=== PATIENT | female | born 1950 | race Two or more races ===

== ENCOUNTER → 2016-09-14 | Outpatient (CLI) | payer MEDICARE, OTHER ==
[~2016-09-14] VITALS: Ht 154.9 cm; Wt 53.5 kg
[~2016-09-14] MED LIST: MULTIVITAMINS1 EAC2 ORAL; NO MEDICATION; biotin PO
[2016-09-14 13:48] VITALS: BP 110/76
--- NOTE | 2016-09-14 13:51 | GI Initial Consult Note ---
History of Present Illness General Date patient seen: Sep 14, 2016 Time patient seen: 13:46 Referring physician: LYLA Reason for Consultation: INITIAL COLONOSCOPY Present Illness HPI 66M no prior history of endoscopic procedures referred to [facility] by Dr. Campbell for initial colonoscopy screening. Pt presents today with c/o of occasional GERD. Otherwise, no other GI complaints. Med list reviewed/reconciled: Yes Allergies: Coded Allergies: No Known Allergies (Unverified , 09/14/16) Patient History History Provided By: Patient PMH Narrative Denies any medical history. Past Surgical History: none Family History Narrative Father - Colon CA @ 80's year old. Cousin Luis [place] @ 80's year old. Social History: Reports: alcohol use - social, rare, other - tea Review of Systems All Other Systems: negative except mentioned in HPI Physical Exam T 98.1 BP 110/76 P 70 99 RA HT 5'1 WT 118 Sp02 EP Interpretation: reviewed General Appearance: well appearing, no apparent distress, alert Head: normocephalic EENT: PERRL/EOMI, normal ENT inspection Neck: full range of motion, supple Respiratory: normal inspection, normal breath sounds, no respiratory distress Cardiovascular: normal rate Gastrointestinal: normal inspection, non tender, soft Rectal: deferred Genitourinary: normal inspection, no CVA tenderness Musculoskeletal: back normal Neurologic: normal inspection, alert, oriented x3, responsive Psychiatric: normal inspection, judgement/insight normal, memory normal Skin: normal inspection, normal color, no rash Lymphatic: normal inspection, no adenopathy GI: Plan Problems: (1) GERD (gastroesophageal reflux disease) (2) Colonoscopy planned Plan EGD/colonoscopy scheduled for 09/21/16 - [facility] & Trilyte prep instructions given and acknowledged. Seen with Dr. Bose. Thank you for referring this kind patient. Meg Araujo N.P. Sep 14, 2016 13:51
== END | disposition home or self-care (01) ==
LOC: PAN 13:10 → EDSEX 13:10
DX: K21.9 Gastro-esophageal reflux disease without esophagitis (principal); Z80.8 Family history of malignant neoplasm of other organs or systems
CPT/HCPCS: 99201

== ENCOUNTER → 2016-09-21 | Day surgery (SDC) | payer MEDICARE, OTHER ==
[2016-09-21] VITALS (8 sets, daily range): BP systolic 104–128; BP diastolic 63–79
[~2016-09-21] VITALS: Ht 154.9 cm; Wt 53.5 kg
[~2016-09-21] MED LIST changes: +LR 1000ml ONE; +Lidocaine 1% MPF 10mg/ml 5ml ONE; +Propofol 10mg/ml 20ml IV ONE
--- NOTE | 2016-09-21 10:50 | Pre-Procedure Note/Attestation ---
Pre-Procedure Note/Attestation Complete Prior to Procedure Planned Procedure: not applicable Procedure Narrative: egd/colon Indications for Procedure Pre-Operative Diagnosis: gerd, screening colon Attestation I attest that I discussed the nature of the procedure; its benefits; risks and complications; and alternatives (and the risks and benefits of such alternatives ), prior to the procedure, with the patient (or the patient's legal group sales representative). I attest that, if there was a reasonable possibility of needing a blood transfusion, the patient (or the patient's legal group sales representative) was given the [facility] standardized written summary, pursuant to the [place] Blood Safety Act ([place] Health and Safety Code # 1645, as amended). I attest that I re-evaluated the patient just prior to the surgery and that there has been no change in the patient's H&P, except as documented below: RICHIE ECHOLS Sep 21, 2016 10:50
--- NOTE | 2016-09-21 10:51 | Short Stay Surgery H&P ---
History of Present Illness History of Present Illness Chief Complaint see recent consult note HPI Jamila Ladd is a 66 year old female who was admitted on for Gerd,Colon Screening Patient History Allergies: Coded Allergies: No Known Allergies (Unverified , 09/14/16) PAST MEDICAL HISTORY: Past Surgeries: Social History: Medication History Scheduled Multivitamins* (Multivitamins*), 1 TAB ORAL DAILY, (Reported) [biotin], 1 TAB PO DAILY, (Reported) Miscellaneous Medications [No Medication ], (Reported) Physical Exam Vital Signs Last Vital Signs Date Time Temp Pulse Resp B/P Pulse Ox O2 Delivery O2 Flow Rate FiO2 09/21/16 10:29 97.1 68 18 123/79 97 Room Air Plan Attestation Are the patient's medical conditions optimized for surgery? RICHIE ECHOLS Sep 21, 2016 10:51
--- NOTE | 2016-09-21 11:17 | Endoscopy Procedure Note ---
Endoscopy Procedure Note Indication for Procedure: anemia, screening colon eval Procedures Performed: EGD, colonoscopy Operative Findings/Diagnosis: gastritis, hemorrhoids Specimen: yes Pt Tolerated Procedure Well: Yes Estimated Blood Loss: none Anesthesiologist: reggie Anesthesia: MAC Implant(s) used?: No 50 yrs or older w/o bx or poly: Yes 10yrs. F/U not recommended: Yes If not recommended, why?: Above average risk 10 yrs. F/U needed: Yes 18 years or older w/prev. colo: No RICHIE ECHOLS Sep 21, 2016 11:17
--- NOTE | 2016-09-21 11:22 | Immediate Post-Op Evaluation ---
Immediate Post-Op Evalulation Immediate Post-Op Evalulation Procedure: egd/colonoscopy Date of Evaluation: Sep 21, 2016 Time of Evaluation: 11:22 IV Fluids: 500 Blood Pressure Systolic: 107 Blood Pressure Diastolic: 71 Pulse Rate: 70 Respiratory Rate: 14 O2 Sat by Pulse Oximetry: 100 Temperature (Fahrenheit): 97.5 Nausea: No Vomiting: No Complications none Patient Status: awake, patent Hydration Status: adequate Drug: none JANN FAIR CRNA Sep 21, 2016 11:22
--- NOTE | 2016-09-21 11:24 | Anethesia Preoperative Eval ---
Anesthesia Pre-op PMH/ROS General Date of Evaluation: Sep 21, 2016 Time of Evaluation: 10:45 Anesthesiologist: aiden ASA Score: ASA 2 Mallampati Score Class I : Soft palate, uvula, fauces, pillars visible Class II: Soft palate, uvula, fauces visible Class III: Soft palate, base of uvula visible Class IV: Only hard plate visible Mallampati Classification: Class II Surgeon: Lidya Diagnosis: GERD Surgical Procedure: EGD/COlonoscopy Anesthesia History: none Family History: no anesthesia problems Allergies: Coded Allergies: No Known Allergies (Unverified , 09/14/16) Medications: see eMAR Past Medical History Cardiovascular: Denies: CAD, HTN, MA, arrhythmia, other, valve dz Pulmonary: Denies: COPD, JONATHAN, asthma, other Gastrointestinal/Genitourinary: Reports: GERD Neurologic/Psychiatric: Denies: CVA, TIA, dementia, depression/anxiety, other Endocrine: Denies: DM, hypothyroidism, other, steroids HEENT: Denies: YUHAAVIATAM (L), YUHAAVIATAM (R), cataract (L), cataract (R), glaucoma, other Hematology/Immune: Denies: DVT, anemia, bleeding disorder, other Musculoskeletal/Integumentary: Denies: DDD, DJD, OA, RA, edema, other PSxH Narrative: none Anesthesia Pre-op Phys. Exam Physician Exam Last Vital Signs Date Time Temp Pulse Resp B/P Pulse Ox O2 Delivery O2 Flow Rate FiO2 09/21/16 10:29 97.1 68 18 123/79 97 Room Air Constitutional: NAD Neurologic: CN 2-12 intact Cardiovascular: RRR Respiratory: CTA Gastrointestinal: S/NT/ND Airway Exam Mallampati Classification 2 Mallampati Score: Class II MO: full ROM: full Dentures: no lower, no upper Anesthesia Pre-op A/P Studies Pre-op Studies: EKG - SR Risk Assessment & Plan Plan: none Status Change Before Surgery: No Pre-Antibiotics Drug: none JANN FAIR CRNA Sep 21, 2016 11:24
--- NOTE | 2016-09-21 12:03 | 48 Hour Post Anesthesia Eval ---
Post Anesthesia Evaluation Procedure: egd/colonoscopy Date of Evaluation: Sep 21, 2016 Time of Evaluation: 12:03 Blood Pressure Systolic: 117 0: 67 Pulse Rate: 67 Respiratory Rate: 14 O2 Sat by Pulse Oximetry: 99 Airway: patent Nausea: No Vomiting: No Hydration Status: adequate Mental Status/LOC: patient returned to baseline Post-Anesthesia Complications: none Follow-up care needed: N/A JANN FAIR CRNA Sep 21, 2016 12:03
--- NOTE | 2016-09-21 17:48 | Procedure Note ---
DATE OF PROCEDURE: 09/21/2016 SURGEON: Ayo Bose M.D. PROCEDURE: Upper endoscopy with biopsy and colonoscopy. ANESTHESIA: Per Mikki FAROOQ. INSTRUMENT: Olympus adult flexible endoscope and colonoscope. INDICATION: Anemia and screening colonoscopy evaluation. The procedure, risks, benefits, and possible consequences, including hemorrhage, aspiration, perforation and infection, and alternative treatments, were explained to the patient/legal guardian by Dr. Ayo Bose and the patient/legal guardian understood and accepted these risks. DESCRIPTION OF PROCEDURE: After informed consent was obtained and the patient was adequately sedated, Olympus upper endoscope was advanced from mouth into the second portion of the duodenum and retroflexion was performed of the stomach. The patient had gastritis. Random biopsies from antrum was obtained to rule out H. pylori infection. The patient also had mild duodenitis. At this time, the upper endoscope was retrieved the patient was turned over for colonoscopy. First, a rectal exam was performed, which shows normal. Then, the scope was advanced from the rectum into the cecum, documented with appendiceal orifice, ileocecal valve, and upper quadrant palpation. Quality of prep was very good. The patient had normal colonoscopic examination. On retroflexion, we saw medium sized nonbleeding internal hemorrhoids. The patient tolerated the procedure well without any complication. SUMMARY OF FINDINGS: 1. Gastritis, status post biopsy. 2. Duodenitis. 3. Internal hemorrhoids. RECOMMENDATIONS: Follow up biopsies and treat accordingly. Ayo Bose M.D. DR: ESTEFANY JOB#: [id number] CC:
--- NOTE | 2016-09-25 18:20 | Cardiology Report ---
APPROVED REPORT EKG Measurement Heart [id number] Normal sinus rhythm Normal ECG
== END | disposition home or self-care (01) ==
LOC: GAS 08:58
DX: Z12.11 Encounter for screening for malignant neoplasm of colon (principal); K64.8 Other hemorrhoids; D64.9 Anemia, unspecified; K29.50 Unspecified chronic gastritis without bleeding; B96.81 Helicobacter pylori [H. pylori] as the cause of diseases classified elsewhere; K29.80 Duodenitis without bleeding
CPT/HCPCS: 43239; 93005; G0121; J2704; J7120; 94003; 94150